=== PATIENT | female | born 1930 | race Caucasian/White ===

== ENCOUNTER 2018-01-24 03:57 | Observation (INO) | payer OTHER, MEDICARE ==
[~2018-01-24] VITALS: Ht 152.4 cm; Wt 51.1 kg
[~2018-01-24 03:57] MED LIST: AMLODIPINE BESYL5 MG PO; ASCORBIC ACID500 M3 PO; ASPIR 8181 M1 PO; ASPIRIN E.C.81 M1 PO; ASPIRIN81 M2 PO; AZOPT 1% O200 DROP/1 BOTH EYES; BACTRIM,SEPT1 TABLET PO; COUMADIN1 MG PO; CRESTOR10 MG PO; DILAUDID2 MG PO; DOCUSATE SODIU100 MG PO; FERROUS SULFAT325 MG PO; FOLIC ACID1 MG PO; KAYEXALATE15 GM/60 M PO; LEVOTHYROXINE50 MCG PO; LIDOCAINE700 MG TD; LOPRESSOR100 MG PO; LOPRESSOR25 MG PO; LUMIGAN 0.50 DROP/22 LEFT EYE; Lopressor PO; NAPROSYN500 MG PO; NORVASC10 MG PO; NORVASC5 MG PO; PARICALCITOL1 MCG PO; Rocaltrol PO; SENNA PLUS TAB1 EACH PO; SOD BICARBONATE PO; SODIUM POL15 GM/60 M PO; TYLENOL REGULA325 MG PO; ULORIC40 MG PO; ULTRAM50 MG PO; VITAMIN D400 UNIT PO; WYGESIC,DARV1 TABLET PO; ZETIA10 MG PO
[2018-01-24 05:38] LABS: HEMATOCRIT 33.7 % (36.0-46.0); HEMOGLOBIN 10.7 G/DL (11.9-15.5); MCH 28.9 PG (29.0-34.0); MCHC 31.8 G/DL (30.0-36.0); MCV 91.1 FL (83-99); PLATELET COUNT 259 K/uL (156-360); RBC DIS.WIDTH-CV 13.5 % (11.8-14.6); RBC DIS.WIDTH-SD 45.7 % (39-53); WHITE BLOOD COUNT 11.7 K/uL (4.1-10.2)
[2018-01-24 05:47] LABS: ALBUMIN 3.6 g/dL (3.2-4.8); CHLORIDE 114 mEq/L (99-109); POTASSIUM 4.9 mEq/L (3.7-5.4); SODIUM 141 mEq/L (136-147)
[2018-01-24 05:49] LABS: GLUCOSE 129 mg/dL (70-99); TOTAL PROTEIN 6.1 g/dL (6.4-8.3)
[2018-01-24 05:51] LABS: TOTAL BILIRUBIN 0.2 mg/dL (0.0-1.0)
[2018-01-24 05:53] LABS: ALKALINE PHOSPHATASE 64 IU/L (3-129); CREATININE 1.4 mg/dL (0.6-1.3); GFR ESTIMATE (CALCULATED) 38 mL/min/
[2018-01-24 05:54] LABS: UREA NITROGEN (BUN) 41 mg/dL (9-23)
[2018-01-24 05:55] LABS: AST (GOT) 15 IU/L (2-34)
[2018-01-24 05:56] LABS: ALT (GPT) 11 IU/L (3-49); LIPASE 45 U/L (1.0-51.0)
[2018-01-24 06:04] LABS: TROP-I INTERPRETATION NEGATIVE; TROPONIN-I 0.03 ng/mL (0.0-0.30)
[2018-01-24 06:40] LABS: APPEARANCE CLEAR ((CLEAR)); BILIRUBIN NEGATIVE; BLOOD NEGATIVE; COLOR COLORLESS ((YELLOW)); GLUCOSE (STRIP) 50; KETONES NEGATIVE; LEUKOCYTES NEGATIVE; NITRITE NEGATIVE; PROTEIN (STRIP) NEGATIVE; SPECIFIC GRAVITY 1.009 (1.000-1.030); UCUL ADDED? NO; UROBILINOGEN 0.2 MG/DL (0.2-1.0)
[2018-01-24] MEDS ORDERED: VELTASSA8.4 GM PO (08:10)
[2018-01-24] MEDS ORDERED: NABI650T PO (08:12)
[2018-01-24] MEDS ORDERED: VIBRAMYCIN100 MG PO (08:12)
[2018-01-24 09:32] LABS: TROP-I INTERPRETATION NEGATIVE; TROPONIN-I 0.06 ng/mL (0.0-0.30)
[2018-01-24 09:50] VITALS: BP 168/72
[2018-01-24 12:44] VITALS: BP 150/70
[2018-01-24 15:08] LABS: TROP-I INTERPRETATION NEGATIVE
[2018-01-24 15:28] VITALS: BP 146/62
[2018-01-24 20:00] VITALS: BP 157/70; BP 159/68; BP 160/70
[2018-01-24 21:13] LABS: TROP-I INTERPRETATION NEGATIVE
[2018-01-24 23:49] VITALS: BP 123/58
[2018-01-25 04:00] VITALS: BP 143/67
[2018-01-25 05:44] LABS: BASOPHIL (%) 0.4 % (0-1); EOSINOPHIL (%) 5.2 % (0-5); EOSINOPHIL COUNT 0.5 K/uL (0-0.3); HEMATOCRIT 32.5 % (36.0-46.0); HEMOGLOBIN 10.1 G/DL (11.9-15.5); IMMATURE GRANULOCYTE (%) 0.5 % (0.0-0.7); LYMPHOCYTE (%) 34.3 % (15-42); LYMPHOCYTE COUNT 3.4 K/uL (1.0-2.8); MCH 28.1 PG (29.0-34.0); MCHC 31.1 G/DL (30.0-36.0); MCV 90.5 FL (83-99); MONOCYTE (%) 9.1 % (3-12); MONOCYTE COUNT 0.9 K/uL (0-0.8); NEUTROPHIL (%) 50.5 % (45-76); PLATELET COUNT 289 K/uL (156-360); RBC DIS.WIDTH-CV 13.7 % (11.8-14.6); RBC DIS.WIDTH-SD 45.2 % (39-53); RED BLOOD COUNT 3.59 M/uL (3.80-5.20); WHITE BLOOD COUNT 9.9 K/uL (4.1-10.2)
[2018-01-25 06:31] LABS: ALBUMIN 3.2 G/DL (3.2-4.8); ALKALINE PHOSPHATASE 54 IU/L (3-129); ALT (GPT) 8 IU/L (3-49); AST (GOT) 12 IU/L (2-34); CHLORIDE 114 MEQ/L (99-109); CREATININE 1.6 MG/DL (0.6-1.3); GFR ESTIMATE (CALCULATED) 32 mL/min/; GLUCOSE 104 mg/dL (70-99); POTASSIUM 4.4 MEQ/L (3.7-5.4); SODIUM 143 MEQ/L (136-147); TOTAL BILIRUBIN 0.3 MG/DL (0.0-1.0); TOTAL PROTEIN 5.7 G/DL (6.4-8.3); UREA NITROGEN (BUN) 32 mg/dL (9-23)
[2018-01-25 08:45] VITALS: BP 187/84
[2018-01-25 12:27] VITALS: BP 180/80
[2018-01-25 15:28] VITALS: BP 164/86
[2018-01-25 19:30] VITALS: BP 123/58
[2018-01-25 23:59] VITALS: BP 154/67
[2018-01-26 03:58] VITALS: BP 128/60
[2018-01-26 08:07] VITALS: BP 148/65
[2018-01-26] MEDS ORDERED: AMLODIPINE BESYL5 MG PO (08:33)
[2018-01-26] MEDS ORDERED: ANTIVERT25 MG PO (08:34)
== END 2018-01-26 11:03 | disposition home or self-care (01) ==
LOC: EME 03:57 → 4SOUTH 07:50 → EDOF 07:50 → ENRESERV 08:00 → 4SOUTH 09:27
PROVIDERS: Emergency Medicine; Hospitalist
DX: R42 Dizziness and giddiness (principal); R11.2 Nausea with vomiting, unspecified; E86.0 Dehydration; N39.0 Urinary tract infection, site not specified; I12.9 Hypertensive chronic kidney disease with stage 1 through stage 4 chronic kidney disease, or unspecified chronic kidney disease; N18.3 Chronic kidney disease, stage 3 (moderate); D64.9 Anemia, unspecified; E11.22 Type 2 diabetes mellitus with diabetic chronic kidney disease; E78.5 Hyperlipidemia, unspecified; E03.9 Hypothyroidism, unspecified; I25.10 Atherosclerotic heart disease of native coronary artery without angina pectoris; Z95.1 Presence of aortocoronary bypass graft; Z79.82 Long term (current) use of aspirin; Z82.49 Family history of ischemic heart disease and other diseases of the circulatory system
CPT/HCPCS: 70450; 71045; 80053; 81003; 83690; 84484; 85025; 85027; 93005; 99281; 99285; G0378; G8978 GP CI; G8979 GP CH; G8980 GP CI; G8987 GO CL; G8988 CI; G8989 CJ; J1650; J2405; J7030; J7120